=== PATIENT | female | born 1950 | race Caucasian/White ===

== ENCOUNTER 2022-03-28 13:20 | Observation (INO) | payer MEDICARE, BC ==
[2022-03-28 14:22] LABS: ESTIMATED GFR 100 mL/min (>60)
[2022-03-28] MEDS ORDERED: Sodium Chloride 0.9% 50 ML IV SCH (14:30)
[2022-03-28] MEDS ORDERED: Iopamidol 612 MG/ML 100 ML Bottle IV SCH (14:30)
[2022-03-28] MEDS ORDERED: Acetaminophen 325 MG Tab PO ONE (16:19)
[2022-03-28] MEDS ORDERED: Sodium Chloride 0.9% 1,000 ML IV SCH (16:45)
[2022-03-28] MEDS ORDERED: Enoxaparin 40 MG/0.4 ML Syringe SUBCUT SCH (19:30)
[2022-03-28] MEDS ORDERED: Sodium Chloride 0.9% 10 ML Syringe FLUSH PRN (19:30)
[2022-03-28] MEDS ORDERED: Albuterol 90 MCG/6.7 GM Inhaler INH PRN (19:30)
[2022-03-28] MEDS ORDERED: Ondansetron 4 MG/2 ML SDV IV PRN (19:30)
[2022-03-28] MEDS ORDERED: Acetaminophen 325 MG Tab PO PRN (19:30)
[2022-03-28] MEDS ORDERED: Sodium Polystyrene Sulfonate 15 GM/60 ML Susp 60 ML Bot PO ONE (19:30)
[2022-03-28] MEDS: Rivaroxaban 15 MG Tab PO SCH (19:58)
[2022-03-28] MEDS: oxyCODONE 5 MG Tab PO SCH (20:36)
[2022-03-29] MEDS: oxyCODONE 5 MG Tab PO SCH ×5 (00:53→13:13)
[2022-03-29] MEDS: Nicotine 7 MG/24 Hr Patch TRDERM SCH (08:32)
[2022-03-29] MEDS: Fluticasone NASAL Spray 16 GM Bottle NASBOTH SCH (08:32)
[2022-03-29] MEDS ORDERED: Non-Formulary Medication 1 Each (Magnesium [Magnesium] 250 MG Tablet) PO SCH (09:00)
[2022-03-29] MEDS: Aspirin 81 MG Tab.EC PO SCH (09:29)
[2022-03-29] MEDS: Diltiazem 120 MG Cap.CD (PTOM) PO SCH (09:29)
[2022-03-29] MEDS: Magnesium Oxide 400 MG Tab PO SCH (09:30)
[2022-03-29] MEDS: Rivaroxaban 15 MG Tab PO SCH ×2 (09:31→17:17)
[2022-03-29] MEDS: Morphine 10 MG/0.5 ML Oral Syringe BUCCAL PRN ×2 (16:23→18:50)
[2022-03-29] MEDS: LORazepam ORAL Concentrate 1MG/0.5ML U/D PO PRN (18:26)
[2022-03-29] MEDS ORDERED: Enoxaparin 40 MG/0.4 ML Syringe SUBCUT SCH (20:00)
[2022-03-29] MEDS ORDERED: Mirtazapine 15 MG Tab PO SCH (21:00)
[2022-03-29] MEDS: MIRTAZAPINE 7.5 MG PO SCH (22:49)
[2022-03-29] MEDS: Trospium 20 MG Tab PO SCH (22:49)
[2022-03-30] MEDS: Morphine 10 MG/0.5 ML Oral Syringe BUCCAL PRN ×5 (02:43→18:43)
[2022-03-30] MEDS: LORazepam ORAL Concentrate 1MG/0.5ML U/D PO PRN ×2 (04:55→21:01)
[2022-03-30] MEDS: Rivaroxaban 15 MG Tab PO SCH ×2 (07:13→16:34)
[2022-03-30] MEDS: Trospium 20 MG Tab PO SCH ×2 (07:13→16:34)
[2022-03-30] MEDS: Nicotine 7 MG/24 Hr Patch TRDERM SCH (08:54)
[2022-03-30] MEDS: Fluticasone NASAL Spray 16 GM Bottle NASBOTH SCH (08:54)
[2022-03-30] MEDS: Aspirin 81 MG Tab.EC PO SCH (08:55)
[2022-03-30] MEDS: Magnesium Oxide 400 MG Tab PO SCH (08:55)
[2022-03-30] MEDS: Diltiazem 120 MG Cap.CD (PTOM) PO SCH (08:56)
[2022-03-30] MEDS ORDERED: Sodium Chloride 0.9% 1,000 ML IV SCH (11:00)
[2022-03-30] MEDS: MIRTAZAPINE 7.5 MG PO SCH (20:56)
[2022-03-31] MEDS: Morphine 10 MG/0.5 ML Oral Syringe BUCCAL PRN ×7 (00:24→22:12)
[2022-03-31] MEDS: Trospium 20 MG Tab PO SCH ×2 (07:20→17:30)
[2022-03-31] MEDS: LORazepam ORAL Concentrate 1MG/0.5ML U/D PO PRN ×4 (07:27→20:36)
[2022-03-31] MEDS: Nicotine 7 MG/24 Hr Patch TRDERM SCH (10:21)
[2022-03-31] MEDS: Diltiazem 120 MG Cap.CD (PTOM) PO SCH (10:21)
[2022-03-31] MEDS: Rivaroxaban 15 MG Tab PO SCH ×2 (10:21→17:30)
[2022-03-31] MEDS: Fluticasone NASAL Spray 16 GM Bottle NASBOTH SCH (10:21)
[2022-03-31] MEDS: Aspirin 81 MG Tab.EC PO SCH (10:22)
[2022-03-31] MEDS: Magnesium Oxide 400 MG Tab PO SCH (10:22)
[2022-03-31] MEDS: MIRTAZAPINE 7.5 MG PO SCH (21:53)
[2022-04-01] MEDS: Morphine 10 MG/0.5 ML Oral Syringe BUCCAL PRN ×4 (00:15→05:23)
[2022-04-01] MEDS: LORazepam ORAL Concentrate 1MG/0.5ML U/D PO PRN ×2 (00:15→05:23)
== END 2022-04-01 06:35 | disposition expired ==
LOC: JP.ED 13:20 → JP.MS 14:46
PROVIDERS: ADMIT Hospitalist; ATTEND Hospitalist
DX: R53.1 Weakness (principal); R41.0 Disorientation, unspecified; J96.21 Acute and chronic respiratory failure with hypoxia; J90 Pleural effusion, not elsewhere classified; C34.92 Malignant neoplasm of unspecified part of left bronchus or lung; F17.210 Nicotine dependence, cigarettes, uncomplicated; I48.91 Unspecified atrial fibrillation; I26.99 Other pulmonary embolism without acute cor pulmonale; Z79.82 Long term (current) use of aspirin; Z79.899 Other long term (current) drug therapy; Z88.8 Allergy status to other drugs, medicaments and biological substances; Z98.890 Other specified postprocedural states; Z20.822 Contact with and (suspected) exposure to COVID-19
CPT/HCPCS: 36415; 36600; 51702; 70450; 71045; 71275; 80048; 80053; 81001; 82803; 85025; 96360; 96361; 99222; 99232; 99238; 99285; 99285-25; A9270-GY; J1650; J3490; J7030; Q9967; U0002